=== PATIENT | male | born 1990 | race Caucasian/White ===

== ENCOUNTER 2019-01-26 00:40 | Emergency (ER) | payer OTHER ==
[~2019-01-26] VITALS: Ht 180.3 cm; Wt 75.7 kg
[2019-01-26] MEDS ORDERED: FAMOTIDINE 20 MG TABLET PO ONE (01:00)
[2019-01-26] MEDS ORDERED: ONDANSETRON ODT 8 MG PO ONE (01:00)
[2019-01-26] MEDS ORDERED: FAMOTIDINE 20 MG TABLET ONE (01:04)
[2019-01-26] MEDS ORDERED: ONDANSETRON ODT 8 MG ONE (01:05)
[2019-01-26 01:23] LABS: BASOPHILS # (AUTO) 0.05 x10^3/uL (0-0.1); BASOPHILS % (AUTO) 0 % (0-1); EOSINOPHILS # (AUTO) 0.06 x10^3/uL (0-0.4); EOSINOPHILS % (AUTO) 0 % (1-7); LYMPHOCYTES # (AUTO) 1.11 x10^3/uL (1-3.4); LYMPHOCYTES % (AUTO) 7 % (22-44); MD NO; MEAN CORPUSCULAR HEMOGLOBIN 30.8 pg (27.5-34.5); MEAN CORPUSCULAR HGB CONC 32.9 g/dL (33.2-36.2); MEAN CORPUSCULAR VOLUME 93.6 fL (81-97); MEAN PLATELET VOLUME 9.6 fL (7.4-10.4); MONOCYTES # (AUTO) 0.88 x10^3/uL (0.2-0.8); MONOCYTES % (AUTO) 6 % (2-9); NEUTROPHILS # (AUTO) 12.86 x10^3/uL (1.8-6.8); NEUTROPHILS % (AUTO) 86 % (42-75); PLATELET COUNT 163 x10^3/uL (130-400); RED BLOOD COUNT 4.87 x10^6/uL (4.38-5.82); RED CELL DISTRIBUTION WIDTH 13.6 % (9.4-14.8)
[2019-01-26 01:30] LABS: ALANINE AMINOTRANSFERASE 25 U/L (12-78); ALBUMIN 3.7 g/dL (3.4-5.0); ANION GAP 8 mmol/L (5-15); CALCIUM 8.5 mg/dL (8.5-10.1); CHLORIDE 107 mmol/L (98-107); CREATININE 1.29 mg/dL (0.7-1.3)
[2019-01-26 01:33] LABS: ALKALINE PHOSPHATASE 73 U/L (45-117); BILIRUBIN,TOTAL 0.9 mg/dL (0.2-1.0); TOTAL PROTEIN 7.2 g/dL (6.4-8.2)
--- NOTE | 2019-01-26 01:36 | NUR ---
PT OOB AMBULATE TO BATHROOM, UPRIGHT STEADY GAIT.
--- NOTE | 2019-01-26 01:53 | NUR ---
PT UNABLE TO PROVIDE URINE SAMPLE. ER PA INFORMED, PT OK TO HAVE PO FLUIDS.
--- NOTE | 2019-01-26 02:36 | NUR ---
PT HAS HAD 960ML WATER BUT STATES HE STILL HAS NO NEED TO URINATE, ER PA INFORMED.
--- NOTE | 2019-01-26 03:00 | NUR ---
ASSUMED ARE OF PATIENT. NO UA NEEDED PER DR HERNÁNDEZ.
[2019-01-26 03:41] VITALS: BP 105/58
== END 2019-01-26 03:54 | disposition home or self-care (01) ==
LOC: ED 03:41
DX: R10.33 Periumbilical pain (principal); R11.0 Nausea; F17.210 Nicotine dependence, cigarettes, uncomplicated
CPT/HCPCS: 36415; 80053; 83690; 85025; 99283; Q0162